=== PATIENT | male | born 1975 | race Caucasian/White ===

== ENCOUNTER 2018-01-09 06:08 | Emergency (ER) | payer OTHER ==
--- NOTE | 2018-01-09 06:13 | ED Physician Documentation ---
PD HPI HEENT - Stated complaint Stated Complaint: TOOTH PX/FACIAL SWELLING - History obtained from History obtained from: Patient - History of Present Illness Timing - onset: How many days ago (1-2) Timing - duration: Days Timing - details: Gradual onset Pain level now: 6 Location: Tooth Improves: Nothing Worsens: Temperatures Recently seen: Not recently seen - Additional information Additional information: c/o gradual onset, gradually worsening left mandibular second molar pain with adjacent gum and facial swelling. Review of Systems Constitutional: reports: Reviewed and negative Throat: reports: Dental pain / toothache PD PAST MEDICAL HISTORY - Past Medical History Past Medical History: No - Past Surgical History Past Surgical History: No - Present Medications Home Medications: Ambulatory Orders Medication Instructions Recorded Confirmed Cephalexin [Keflex] 500 mg PO Q6HR #30 capsule 01/09/18 Hydrocodone/Acetaminophen 1 - 2 each PO Q6HR PRN #14 tablet 01/09/18 [Hydrocodon-Acetaminophen 5-325] - Allergies Allergies/Adverse Reactions: Allergies Allergy/AdvReac Type Severity Reaction Status Date / Time No Known Drug Allergies Allergy Verified 01/09/18 06:16 PD ED PE NORMAL - Vitals Vital signs reviewed: Yes - General General: Alert and oriented X 3, No acute distress, Well developed/nourished - Neck Neck: Supple, no meningeal sign PD ED PE EXPANDED - HEENT HEENT: Other (left mandibular gingiva is swollen and TTP) HEENT Visual: 1 - swelling Results - Vitals Vitals: Vital Signs - 24 hr 01/09/18 06:15 Temperature 36.0 C L Heart Rate 86 Respiratory 16 Rate Blood Pressure 145/98 H O2 Saturation 97 Oxygen O2 Source Room air PD MEDICAL DECISION MAKING - ED course Complexity details: considered differential, d/w patient Departure - Departure Disposition: Home, Self Care Clinical Impression: Pain due to dental caries Condition: Good Instructions: ED Tooth Pain Follow-Up: VIVI JOSEPH MD [Primary Care Provider] - Prescriptions: Cephalexin [Keflex] 500 mg PO Q6HR #30 capsule Hydrocodone/Acetaminophen [Hydrocodon-Acetaminophen 5-325] 1 - 2 each PO Q6HR PRN #14 tablet PRN Reason: Pain Discharge Date/Time: 01/09/18 06:53
[2018-01-09 06:24] VITALS: BP 145/98
[2018-01-09] MEDS ORDERED: HYDROcod/ACET 5/325 Prepack 4 PO STA (06:41)
[2018-01-09] MEDS ORDERED: cephALEXin 250 MG CAPSULE PO STA ×2 (06:41→06:43)
== END 2018-01-09 06:53 | disposition home or self-care (01) ==
LOC: ED 06:08
DX: K08.89 Other specified disorders of teeth and supporting structures (principal); K02.9 Dental caries, unspecified
CPT/HCPCS: 99283; A9270

== ENCOUNTER 2018-03-13 09:03 | Emergency (ER) | payer OTHER ==
[2018-03-13] MEDS ORDERED: KETOROLAC 60 MG/2 ML VIAL IM STA (10:02)
--- NOTE | 2018-03-13 10:11 | ED Physician Documentation ---
History of Present Illness - Stated complaint Stated Complaint: LT FOOT SWOLLEN - Chief complaint Chief Complaint: Ext Problem - Additonal information Additional information: hx from pt 42 [place] male sufefrs from gout gets about 3 flares per year for which he takes motrin not on allopurinol no injury etc R great toe pain c/w prior gout Review of Systems Constitutional: denies: Fever Musculoskeletal: reports: Joint pain PD PAST MEDICAL HISTORY - Past Medical History Cardiovascular: Hypertension - Past Surgical History Past Surgical History: No - Present Medications Home Medications: Ambulatory Orders Medication Instructions Recorded Confirmed Colchicine 0.6 mg PO Q8H #3 capsule 03/13/18 Indomethacin [Indocin] 25 mg PO TIDWM PRN #30 capsule 03/13/18 Lisinopril 20 mg DAILY 03/13/18 03/13/18 - Allergies Allergies/Adverse Reactions: Allergies Allergy/AdvReac Type Severity Reaction Status Date / Time No Known Drug Allergies Allergy Verified 01/09/18 06:16 - Social History Does the pt smoke?: No Smoking Status: Never smoker Does the pt drink ETOH?: Yes Does the pt have substance abuse?: No - Immunizations Immunizations are current?: Yes PD ED PE NORMAL - Vitals Vital signs reviewed: Yes - Cardiac Cardiac: RRR - Respiratory Respiratory: No respiratory distress - Extremities Extremities: Other (R great toe MCP erythema) Results - Vitals Vitals: Vital Signs - 24 hr 03/13/18 09:09 Temperature 36.6 C Heart Rate 87 Respiratory 16 Rate Blood Pressure 153/100 H O2 Saturation 96 Oxygen O2 Source Room air Departure - Departure Disposition: Home, Self Care Clinical Impression: Gout Qualifiers: Gout site: foot Gout etiology: unspecified cause Chronicity: acute Laterality: right Qualified Code(s): M10.9 - Gout, unspecified Condition: Good Instructions: Gout Prescriptions: Colchicine 0.6 mg PO Q8H #3 capsule Indomethacin [Indocin] 25 mg PO TIDWM PRN #30 capsule PRN Reason: Pain Comments: Please follow up with your PMD at [facility] to discuss taking allopurinol to decrease the uric acid levels in your body that cause the gout flares Forms: Activity restrictions
[2018-03-13 10:48] VITALS: BP 146/98
== END 2018-03-13 10:46 | disposition home or self-care (01) ==
LOC: ED 09:03
DX: M10.9 Gout, unspecified (principal); I10 Essential (primary) hypertension
CPT/HCPCS: 96372; 99283